=== PATIENT | female | born 1955 | race Caucasian/White ===

== ENCOUNTER 2019-03-18 22:36 | Emergency (ER) | payer OTHER ==
[~2019-03-18] VITALS: Ht 165.1 cm; Wt 71.8 kg
[2019-03-18] MEDS ORDERED: ZINC1TAB2 PO (22:44)
[2019-03-18] MEDS ORDERED: MULTCAP PO (22:44)
[2019-03-18 23:09] LABS: BASO % 0.4 % (0.0-1.0); EOS # 0.1 10^3/uL (0.0-0.50); EOS % 0.7 % (0.0-3.0); HEMATOCRIT 40.9 % (36.0-47.0); HEMOGLOBIN 13.9 g/dl (12.0-15.5); LYMPH # 1.4 10^3/uL (1.5-4.5); LYMPH % 20.8 % (24.0-44.0); MEAN CORPUSCULAR HEMOGLOBIN 29.6 pg (27.0-33.0); MEAN CORPUSCULAR VOLUME 87.2 fl (80.0-96.0); MONO # 0.7 10^3/uL (0.0-0.8); MONO % 9.7 % (0.0-5.0); NEUTROPHILS # 4.6 10^3/uL (1.8-7.7); NEUTROPHILS % 68.3 % (36.0-66.0); PLATELET COUNT, AUTOMATED 223 10^3/uL (150-450); RED BLOOD COUNT 4.69 10^6/uL (4.00-5.40); WHITE BLOOD COUNT 6.8 10^3/uL (4.0-10.0)
[2019-03-18 23:19] LABS: INR 0.91; PROTHROMBIN TIME 12.3 SECONDS (12.1-14.4)
[2019-03-19 00:20] LABS: ALT/SGPT 35 U/L (12-78); BILIRUBIN,DIRECT 0.1 MG/DL (0.0-0.2); BILIRUBIN,TOTAL 0.5 MG/DL (0.2-1.0); BLOOD UREA NITROGEN 15 MG/DL (7-18); CARBON DIOXIDE LEVEL 24 MEQ/L (21-32); CHLORIDE LEVEL 104 MEQ/L (98-107); CPK CREATINE PHOSPHOKINASE 87 U/L (26-192); CREATININE FOR GFR 0.73 MG/DL (0.55-1.30); GLOMERULAR FILTRATION RATE > 60.0 (>45); GLUCOSE, FASTING 108 MG/DL (70-100); LIPASE 93 U/L (73-393); MB/CK RELATIVE INDEX 1.26 (< OR =4); POTASSIUM SERUM 3.6 MEQ/L (3.5-5.1); SODIUM LEVEL 139 MEQ/L (136-145); TOTAL PROTEIN 7.7 GM/DL (6.4-8.2); TROPONIN I < 0.02 NG/ML (< 0.10)
[2019-03-19] MEDS: LORazepam 2 MG/ML VIAL (J2060) IV STA (00:45)
[2019-03-19] MEDS: ONDANSETRON 4 MG ORAL DISINTEGRATING TAB (Q0162 PER 1MG) PO ONE (00:45)
[2019-03-19 01:02] VITALS: BP 168/86
--- NOTE | 2019-03-19 01:04 | REP ---
Clinical: Chest pain . Comparison: 11/13/2013 . Findings: The mediastinum and cardiac silhouette are stable and within normal limits for portable technique. The lung barrett are clear without acute consolidation, effusion, or pneumothorax. Skeletal structures are intact. Impression: No acute cardiopulmonary process appreciated. Electronically Signed by Esteban Pedroza MD 03/19/2019 12:55 A
--- NOTE | 2019-03-19 07:24 | ECGEPIP ---
Stationary ECG Study [facility] - ED Test Date: 2019-03-18 Pat Name: BEV RODRIGUEZ Department: Room: - Gender: F [employer]: SERA : 1955 Requested By: MARIAH BEAL Order Number: [id number] Reading MD: Sissy Fang Measurements Intervals [place] Rate: 67 P: 14 [place]: 143 QRS: 43 QRSD: 92 T: 47 QT: 382 QTc: 404 Interpretive Statements SINUS RHYTHM NO PRIOR FOR COMPARISON Electronically Signed On 03-19-2019 7:23:49 EDT by Sissy Fang
== END 2019-03-19 01:05 | disposition home or self-care (01) ==
LOC: M ED 22:36
DX: S16.1XXA Strain of muscle, fascia and tendon at neck level, initial encounter (principal); R11.10 Vomiting, unspecified
CPT/HCPCS: 71045; 80053; 82248; 82550; 82553; 83690; 84484; 85025; 85610; 93005; 93041; 99284; J2060; Q0162

== ENCOUNTER 2019-03-27 22:12 | Emergency (ER) | payer OTHER ==
[~2019-03-27] VITALS: Ht 165.1 cm; Wt 73.0 kg
[~2019-03-27 22:12] MED LIST: MULTCAP PO; ZINC1TAB2 PO
[2019-03-27] MEDS ORDERED: CYCL5TAB PO (22:23)
[2019-03-27] MEDS ORDERED: RANI1TAB38 PO (22:39)
[2019-03-27] MEDS ORDERED: ASPIRIN 81 MG CHEW TABLET PO ONE (23:45)
[2019-03-28 00:12] LABS: BASO % 0.6 % (0.0-1.0); EOS # 0.1 10^3/uL (0.0-0.50); EOS % 0.8 % (0.0-3.0); HEMATOCRIT 38.1 % (36.0-47.0); HEMOGLOBIN 13.3 g/dl (12.0-15.5); LYMPH # 0.7 10^3/uL (1.5-4.5); LYMPH % 9.7 % (24.0-44.0); MEAN CORPUSCULAR HEMOGLOBIN 30.5 pg (27.0-33.0); MEAN CORPUSCULAR HGB CONC 34.9 g/dl (32.0-36.5); MEAN CORPUSCULAR VOLUME 87.4 fl (80.0-96.0); MONO # 0.5 10^3/uL (0.0-0.8); MONO % 7.4 % (0.0-5.0); NEUTROPHILS # 5.8 10^3/uL (1.8-7.7); NEUTROPHILS % 81.1 % (36.0-66.0); PLATELET COUNT, AUTOMATED 240 10^3/uL (150-450); RED BLOOD COUNT 4.36 10^6/uL (4.00-5.40); WHITE BLOOD COUNT 7.2 10^3/uL (4.0-10.0)
[2019-03-28] MEDS ORDERED: LORazepam 1 MG TAB PO ONE (00:30)
[2019-03-28 00:47] LABS: ALBUMIN 3.5 GM/DL (3.2-5.2); ALT/SGPT 25 U/L (12-78); BILIRUBIN,DIRECT < 0.1 MG/DL (0.0-0.2); BILIRUBIN,TOTAL 0.3 MG/DL (0.2-1.0); BLOOD UREA NITROGEN 21 MG/DL (7-18); CALCIUM LEVEL 8.5 MG/DL (8.8-10.2); CARBON DIOXIDE LEVEL 23 MEQ/L (21-32); CHLORIDE LEVEL 101 MEQ/L (98-107); CPK CREATINE PHOSPHOKINASE 80 U/L (26-192); CREATININE FOR GFR 0.72 MG/DL (0.55-1.30); GLOMERULAR FILTRATION RATE > 60.0 (>45); GLUCOSE, FASTING 116 MG/DL (70-100); LIPASE 88 U/L (73-393); MB/CK RELATIVE INDEX 7.25 (< OR =4); POTASSIUM SERUM 3.8 MEQ/L (3.5-5.1); SODIUM LEVEL 134 MEQ/L (136-145); TOTAL PROTEIN 7.3 GM/DL (6.4-8.2); TROPONIN I 1.59 NG/ML (< 0.10)
[2019-03-28 00:57] LABS: INR 0.92; PROTHROMBIN TIME 12.5 SECONDS (12.1-14.4)
[2019-03-28] MEDS ORDERED: HEPARIN DRIP 25,000 UNITS in APPROPRIATE DILUENT 1 EA IV SCH (01:25)
[2019-03-28] MEDS ORDERED: NITROGLYCERIN 0.4 MG SUBL TABLET SL PRN (01:30)
[2019-03-28] MEDS ORDERED: HEPARIN SOD (PORCINE) 5000 UNITS/ML VIAL IV ONE (01:30)
[2019-03-28 01:37] VITALS: BP 129/62
[2019-03-28 02:47] VITALS: BP 125/58
--- NOTE | 2019-03-28 07:30 | ECGEPIP ---
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
--- NOTE | 2019-03-28 07:54 | REP ---
Clinical: Acute chest pain . Comparison: 03/18/2019 . Findings: The mediastinum and cardiac silhouette are stable and within normal limits for portable technique. The lung barrett are clear without acute consolidation, effusion, or pneumothorax. Skeletal structures are intact. Impression: No acute cardiopulmonary process appreciated. Electronically Signed by Esteban Pedroza MD 03/28/2019 07:46 A
== END 2019-03-28 02:50 | disposition short-term general hospital (02) ==
LOC: M ED 22:12
DX: I21.4 Non-ST elevation (NSTEMI) myocardial infarction (principal); E07.9 Disorder of thyroid, unspecified; Z88.0 Allergy status to penicillin; Z91.040 Latex allergy status

== ENCOUNTER → 2020-04-05 | Outpatient (CLI) | payer OTHER ==
[~2020-04-05] MED LIST changes: +ASPI81TA85 PO; +CYCL5TAB PO; +METO25TA4 PO; +NON-325T5 PO; +RANI1TAB38 PO; +VITAD1000T PO
== END ==
LOC: M LABSMTC 10:12
PROVIDERS: ATTEND Anesthesiology
DX: Z01.818 Encounter for other preprocedural examination (principal); Z11.59 Encounter for screening for other viral diseases
CPT/HCPCS: C9803; U0003

== ENCOUNTER 2020-04-08 11:46 | Day surgery (SDC) | payer OTHER ==
[~2020-04-08] VITALS: Ht 163.8 cm; Wt 68.5 kg
[~2020-04-08 11:46] MED LIST changes: +NS 1,000 ML IV ONE
[2020-04-08] MEDS ORDERED: propofoL 200 MG/20 ML VIAL As Ordered ONE ×2 (12:48→13:32)
[2020-04-08] MEDS ORDERED: LIDOCAINE 2% 100MG/5ML SDV (FOR ANES.) As Ordered ONE (12:49)
--- NOTE | 2020-04-08 13:38 | ROOR ---
Patient Name: Jaqueline Bird Procedure Date: 04/08/2020 1:15 PM Date of : 1955 Age: 64 Room: [facility] Gender: Female Note Status: Finalized Procedure: Total Colonoscopy to Cecum Indications: Positive Cologuard test Providers: Alek Barton MD Referring MD: Handy Phipps MD Requesting Provider: Medicines: Monitored Anesthesia Care Complications: No immediate complications. Procedure: Pre-Anesthesia Assessment: - The heart rate, respiratory rate, oxygen saturations, blood pressure, adequacy of pulmonary ventilation, and response to care were monitored throughout the procedure. The Colonoscope was introduced through the anus and advanced to the cecum, identified by appendiceal orifice and ileocecal valve. The colonoscopy was performed without difficulty. The patient tolerated the procedure well. The quality of the bowel preparation was excellent. Findings: The perianal and digital rectal examinations were normal. Non-bleeding internal hemorrhoids were found during retroflexion. The hemorrhoids were small and Grade I (internal hemorrhoids that do not prolapse). Scattered small-mouthed diverticula were found in the recto-sigmoid colon, sigmoid colon and descending colon. The exam was otherwise without abnormality on direct and retroflexion views. Impression: - Non-bleeding internal hemorrhoids. - Diverticulosis in the recto-sigmoid colon, in the sigmoid colon and in the descending colon. - The examination was otherwise normal on direct and retroflexion views. - No specimens collected. - The exam was otherwise normal to the cecum. Recommendation: - Patient has a contact number available for emergencies. The signs and symptoms of potential delayed complications were discussed with the patient. Return to normal activities tomorrow. Written discharge instructions were provided to the patient. - High fiber diet. - Discharge patient to home. - Continue present medications. - Repeat colonoscopy in 10 years for screening purposes. - Return to referring physician. - The findings and recommendations were discussed with the patient's family. Alek Barton MD Alek Barton MD 04/08/2020 1:38:00 PM Electronically signed by Alek Barton MD Number of Addenda: 0 Note Initiated On: 04/08/2020 1:15 PM Estimated Blood Loss: Estimated blood loss: none.
[2020-04-08 14:00] VITALS: BP 118/58
== END 2020-04-08 14:13 | disposition home or self-care (01) ==
LOC: M OPP 11:46
PROVIDERS: ATTEND Internal Medicine Gastroenterology
DX: K57.30 Diverticulosis of large intestine without perforation or abscess without bleeding (principal); K64.0 First degree hemorrhoids; R19.5 Other fecal abnormalities; I10 Essential (primary) hypertension; Z79.82 Long term (current) use of aspirin; Z79.899 Other long term (current) drug therapy; Z88.0 Allergy status to penicillin; Z91.040 Latex allergy status

== ENCOUNTER → 2022-07-12 | Outpatient (CLI) | payer MEDICARE, OTHER ==
[~2022-07-12] MED LIST changes: +ACET32TAB PO; -ASPI81TA85 PO; +ASPI81TA86 PO; -NON-325T5 PO; -NS 1,000 ML IV ONE; +VITA100093 PO; -VITAD1000T PO
== END ==
LOC: M WUC 13:55
PROVIDERS: ATTEND Family Medicine
DX: M25.551 Pain in right hip (principal)

== ENCOUNTER → 2022-07-29 | Outpatient (CLI) | payer MEDICARE, OTHER | LOC: M WHC 12:59 | PROVIDERS: ATTEND Obstetrics & Gynecology | DX: Z12.31 Encounter for screening mammogram for malignant neoplasm of breast (principal); Z13.820 Encounter for screening for osteoporosis; M85.88 Other specified disorders of bone density and structure, other site; M85.851 Other specified disorders of bone density and structure, right thigh; M85.852 Other specified disorders of bone density and structure, left thigh ==

== ENCOUNTER → 2023-01-03 | Outpatient (REF) | payer MEDICARE, OTHER | LOC: M LAB REF 12:08 | PROVIDERS: ATTEND Family Medicine | DX: Z13.89 Encounter for screening for other disorder (principal) ==

== ENCOUNTER → 2025-03-14 | Outpatient (CLI) | payer MEDICARE, OTHER ==
[~2025-03-14] MED LIST changes: -CYCL5TAB PO; +CYCL5TAB4 PO
== END ==
LOC: M WHC 13:58
PROVIDERS: ATTEND Obstetrics & Gynecology
DX: Z12.31 Encounter for screening mammogram for malignant neoplasm of breast (principal); Z13.820 Encounter for screening for osteoporosis; Z53.9 Procedure and treatment not carried out, unspecified reason

== ENCOUNTER → 2025-03-21 | Outpatient (CLI) | payer MEDICARE, OTHER | LOC: M WHC 10:27 | PROVIDERS: ATTEND Obstetrics & Gynecology | DX: Z13.820 Encounter for screening for osteoporosis (principal); Z12.31 Encounter for screening mammogram for malignant neoplasm of breast; R92.323 Mammographic fibroglandular density, bilateral breasts; M85.851 Other specified disorders of bone density and structure, right thigh; M85.852 Other specified disorders of bone density and structure, left thigh; M85.88 Other specified disorders of bone density and structure, other site ==